=== PATIENT | female | born 1985 | race Caucasian/White ===

== ENCOUNTER 2017-05-20 09:22 | Emergency (ER) | payer SELFPAY ==
[~2017-05-20] VITALS: Ht 152.4 cm; Wt 54.0 kg
[2017-05-20 11:05] LABS: BASOPHILS % 0.5 % (0.0-2.0); EOSINOPHILS % 1.7 % (0.0-5.0); HEMATOCRIT. 36.8 % (36.0-48.0); HEMOGLOBIN. 12.1 g/dL (12.0-16.0); LYMPHOCYTES % 24.8 % (20.0-50.0); MEAN CORPUSCULAR VOLUME 78.7 fL (81.0-99.0); MEAN PLATELET VOLUME 7.1 fl (7.4-10.4); MONOCYTES % 5.9 % (2.0-8.0); NEUTROPHILS % 67.1 % (40.0-76.0); PLATELET 265 x1000/uL (130-400); RED BLOOD CELL COUNT 4.67 mill/uL (4.2-5.4)
[2017-05-20 11:12] LABS: CHLORIDE 106 mEq/L (98-107)
[2017-05-20 11:18] LABS: CARBON DIOXIDE 22 mEq/L (21-32)
[2017-05-20 12:29] LABS: B-HCG QUANTITATIVE 10205 mIU/mL (<3)
[2017-05-20 12:40] LABS: CLARITY URINE CLOUDY (CLEAR); COLOR URINE YELLOW (YELLOW); GLUCOSE URINE NEGATIVE (NEGATIVE); KETONES URINE 1+ (NEGATIVE); LEUKOCYTE ESTERASE URINE 3+ (NEGATIVE); NITRITE URINE NEGATIVE (NEGATIVE); OCCULT BLOOD URINE NEGATIVE (NEGATIVE); PH URINE 6.5 (4.5-8.0); PROTEIN URINE NEGATIVE (NEGATIVE); SPECIFIC GRAVITY URINE 1.024 (1.005-1.030)
[2017-05-20 13:48] VITALS: BP 111/57
== END 2017-05-20 14:46 | disposition home or self-care (01) ==
LOC: ER 09:47
DX: Z04.1 Encounter for examination and observation following transport accident (principal); V49.9XXA Car occupant (driver) (passenger) injured in unspecified traffic accident, initial encounter; Y93.89 Activity, other specified; Y92.89 Other specified places as the place of occurrence of the external cause
CPT/HCPCS: 36415; 76801; 80048; 81001; 84702; 85025; 99285